=== PATIENT | female | born 1930 | race Caucasian/White ===

== ENCOUNTER → 2017-05-04 | Outpatient (CLI) | payer MEDICARE, OTHER ==
[~2017-05-04] MED LIST: CELE1CAP8 PO; DIAZ5TAB PO; DILT360C12 PO; FLUT50SP EACH NARE; IRBE300T11 PO; LEVO125T4 PO; MECL-62 PO; PRIL20TA2 PO; ROSU10 PO; TRAM50TA PO; TRAV0.00 EACH EYE; VITA100021 SL; VITA400C28 PO; VIVE0.05 T-DERMAL
[2017-05-04 12:02] LABS: AUTOMATED NEUTROPHIL # 4.4 TH/MM3 (1.8-7.7); BASOPHIL % 0.8 % (0.0-2.0); EOSINOPHIL # 0.1 TH/MM3 (0-0.4); HEMATOCRIT 36.9 % (35.0-46.0); HEMO FLAGS DIFF FINAL; LYMPH % 17.8 % (9.0-44.0); LYMPHOCYTE # 1.1 TH/MM3 (1.0-4.8); MEAN CELL VOLUME 83.5 FL (80.0-100.0); MEAN CORPUSCULAR HEMOGLOBIN 27.2 PG (27.0-34.0); MEAN CORPUSCULAR HGB CONC 32.6 % (32.0-36.0); MONO % 9.1 % (0.0-8.0); NEUT % 71.3 % (16.0-70.0); PLATELET COUNT 251 TH/MM3 (150-450); RED BLOOD COUNT 4.43 MIL/MM3 (4.00-5.30); RED CELL DISTRIBUTION WIDTH 15.4 % (11.6-17.2); WHITE BLOOD COUNT 6.1 TH/MM3 (4.0-11.0)
[2017-05-04 12:13] LABS: BLOOD, URINE NEG (NEG); COMMENT (UR) CULT NOT INDICATED; CULTURE IF INDICATED CULT NOT INDICATED; GLUCOSE,URINE NEG (NEG); KETONE, URINE NEG (NEG); NITRITE,URINE NEG (NEG); PH, URINE 6.5 (5.0-8.5); SQUAMOUS EPITHELIAL CELL URINE 1 /hpf (0-5); URINE COLOR LIGHT-YELLOW (YELLW/STRAW)
[2017-05-04 12:15] LABS: BICARBONATE 28.1 MEQ/L (21.0-32.0)
--- NOTE | 2017-05-06 13:01 | EKG ---
Date Performed: 05/04/2017 Time Performed: 11:46:00 PTAGE: 86 years EKG: Possible inferior wall myocardial infarction, of indetermined age First degree AV block Low voltage in precordial leads Since PREVIOUS TRACING , no significant change noted Analysis error PREVIOUS TRACIN 7 15.43 DOCTOR: Shad Donnelly Interpretating Date/Time 05/06/2017 12:59:56
== END ==
LOC: CPRE 11:20
PROVIDERS: ATTEND Orthopaedic Surgery Orthopaedic Surgery of the Spine
DX: Z01.810 Encounter for preprocedural cardiovascular examination (principal); Z01.812 Encounter for preprocedural laboratory examination; M50.30 Other cervical disc degeneration, unspecified cervical region; M47.12 Other spondylosis with myelopathy, cervical region
CPT/HCPCS: 36415; 80048; 81001; 85025; 93005

== ENCOUNTER 2017-05-11 05:26 | Observation (INO) | payer MEDICARE, OTHER ==
[~2017-05-11] VITALS: Ht 160 cm; Wt 83.3 kg
[2017-05-11] MEDS ORDERED: CHLORHEXIDINE GLUCONATE 4% SOLN 120 ML BTL TOPICAL SCH (05:45)
[2017-05-11] MEDS ORDERED: POVIDONE IODINE 5% (ANTISEPSIS KIT) 4 APPLICATIONS EACH NARE PRN (05:45)
[2017-05-11] MEDS ORDERED: LACTATED RINGER'S 1000 ML IV PRN (05:45)
[2017-05-11] MEDS ORDERED: METOPROLOL TARTRATE 25 MG TAB PO PRN (05:45)
[2017-05-11] MEDS ORDERED: SODIUM CHLORID 0.9% 500 ML IV PRN (05:45)
[2017-05-11] MEDS ORDERED: VANCOMYCIN 1000 MG/NS 250 ML (for <70 kg) IV SCH ×2 (05:45)
[2017-05-11] MEDS ORDERED: CHLORHEXIDINE GLUCONATE 2 % 1 PACK (2 CLOTHS) TOPICAL PRN (05:45)
[2017-05-11] MEDS ORDERED: ceFAZolin 2 GM PREMIX 50 ML IV SCH (05:45)
[2017-05-11] MEDS ORDERED: GENTAMICIN SULFATE 80 MG/2 ML VIAL ONE ×2 (06:24)
[2017-05-11] MEDS ORDERED: BUPIVACAINE/EPINEPHRINE 0.25% PF 30 ML VIAL ONE (06:25)
[2017-05-11] MEDS ORDERED: ACETAMINOPHEN 1000 MG/100 ML 100 ML IV ONE (06:45)
[2017-05-11] MEDS ORDERED: PROPOFOL 500 MG/50 ML INJ 50 ML ONE (06:56)
--- NOTE | 2017-05-11 09:08 | PD.OP ---
cc: Roberto Barreto MD; Zack Barreto MD Operative Report Date of Surgery: May 11, 2017 Preoperative Diagnosis: Cervical spinal stenosis, C4-5. Cervical radiculopathy, bilateral. Cervical myelopathy Postoperative Diagnosis: Same Procedure: Anterior cervical discectomy decompression and bilateral foraminotomies, C4 5. Left anterior iliac crest bone graft Anesthesia: Gen. Surgeon: Zack Barreto Hyperion Developer(s): NATALIA Murillo Operation and Findings: EBL: 50 cc INDICATIONS: This patient is an 86-year-old female with significant neck and arm pain. Investigative studies show evidence of cervical stenosis especially at C4 5 with evidence of spinal cord compression and mild spinal cord ischemia. She presents for surgical treatment NOTE: Anusha Murillo PA-C was present for the entire surgical procedure as my first coat operator. In my medical opinion her skill and care was necessary for proper management of this patient PROCEDURE: The patient was brought to the operating room and anesthetized in the supine position. This patient was positioned supine on the radiolucent table. All pressure points were protected in the anterior cervical spine and iliac crest was scrubbed with alcohol followed by Hibiclens followed by ChloraPrep. A timeout was done and antibiotics were given within 1 hour time window. Lateral radiographic images were used identifying the proper level. A right anterior incision was made in line with skin creases. The platysma was opened in line with the incision. Deep dissection continued in the interval between the carotid sheath and the esophagus. The longus-coli muscles were lifted on both sides and retractors were positioned allowing good exposure. Lateral radiographic images were used to identify the proper level. Turon style interosseous pins were placed at C4 and 5 allowing exposure to that level. The microscope was rolled into the field. A total discectomy was accomplished and posterior osteophytes were removed. The posterior longitudinal ligament and annulus was taken down. Bilateral foraminotomies were accomplished. The endplates were squared up anticipating later bone grafting. A blunt probe could be placed out each foramen without evidence of nerve root compromise. The left iliac crest was approached. A small stab incision was made allowing percutaneous access to the anterior iliac crest. Multiple cores of cancellous bone were harvested and taken to the back table to be used for later bone grafting. The wound was irrigated anesthetized and closed with 4-0 Vicryl followed by Dermabond. The case was turned over to Dr. Roberto Barreto for fusion and instrumentation per his dictation. FINDINGS: There was evidence of a central osteophyte disc complex and evidence of a disc herniation centrally into the left extending into the foramen at C4 5. The final decompression was very satisfactory. A blunt probe could be placed along the exiting C5 nerve root on both sides without evidence of compromise. No complication was appreciated. NOTE: This surgery was performed in 2 parts. The first part was the neurosurgical decompression performed under the variable power stereo microscope by the undersigned in addition to the bone graft. The second portion of the surgery will be performed by the orthopedic spine component by co -surgeon, Dr. Roberto Barreto for the anterior fusion with interbody cage and anterior plate. The skill of 2 surgeons was necessary to perform distinct separate procedural services as dictated above and dictated in the following operative note by Dr. Roberto Barreto. Zack Barreto MD May 11, 2017 09:08
[2017-05-11] MEDS ORDERED: Post-op Orders (for Pharmacy) XX ONE (10:12)
--- NOTE | 2017-05-11 10:13 | RADRPT ---
EXAM DATE/TIME: 05/11/2017 09:40 [facility] COMPARISON: No previous studies available for comparison. INDICATIONS : C4-C5 Anterior cervical discectomy and fusion. MEDICAL HISTORY : None. SURGICAL HISTORY : None. ENCOUNTER: Initial ACUITY: 1 day PAIN SCORE: Non-responsive. LOCATION: c-spine FINDINGS: Two projection examination was performed. Post surgical changes following anterior cervical fusion a t C4-5 are noted. Vertebral body cages in place. Cervical alignment is well-preserved. CONCLUSION: Stable cervical alignment and satisfactory appearance of the cervical spine following anterior cervic al fusion C4-5. Derek Orozco MD on May 11, 2017 at 10:04 Board Certified Radiologist. This report was verified electronically.
[2017-05-11] MEDS ORDERED: ONDANSETRON HCL 4 MG/2 ML VIAL IV PUSH PRN (10:30)
[2017-05-11] MEDS ORDERED: traMADol HCL 50 MG TAB PO PRN (10:30)
[2017-05-11] MEDS ORDERED: MORPHINE SULFATE 4 MG/ML INJ IV PUSH PRN (10:30)
[2017-05-11] MEDS ORDERED: ALUMINUM/MAGNESIUM/SIMETH 30 ML CUP PO PRN (10:30)
[2017-05-11] MEDS ORDERED: PROMETHAZINE INJ 25 MG/ML VIAL IM PRN (10:30)
[2017-05-11] MEDS ORDERED: DO NOT ADM ANY ANTICOAGULANT DRUGS PRN (10:30)
[2017-05-11] MEDS ORDERED: NON-FORMULARY DRUG (Estradiol-Dot Patch 84 HR (Vivelle-Dot Patch 84 HR) 1 PATCH) T-DERMAL SCH (10:30)
[2017-05-11] MEDS ORDERED: MECLIZINE HCL 25 MG TAB PO PRN (10:30)
[2017-05-11] MEDS: LACTATED RINGER'S 1000 ML INJ 1,000 ML IV SCH ×2 (10:45→22:47)
[2017-05-11] MEDS ORDERED: *morphine SULFATE 8 MG/ML PERIprocedure ONLY ONE (10:48)
[2017-05-11] MEDS ORDERED: DIAZEPAM 5 MG TAB PO PRN (11:00)
--- NOTE | 2017-05-11 11:55 | MP ---
cc: WILLIE CRAIN,WILLIE FONTANEZ DATE OF SURGERY 05/11/2017 PREOPERATIVE DIAGNOSIS 1. C4-5 herniated nucleus pulposus, osteophyte disk complex. 2. C4-5 spinal stenosis, spinal cord compression, spinal cord edema. 3. Cervical spine degenerative disc disease, osteoarthritis. 4. Cervical radiculitis 5. Cervical myelopathy with cervical radiculitis and bilateral upper extremity weakness. 6. Cervical spine degenerative disease, osteoarthritis. PROCEDURE C4-5 screws anterior interbody fusion; C4-5 SpineNet ACC anterior cervical cage; C4-5 SpineNet Rauscher anterior spinal instrumentation. SURGEON Kadie Barreto MD [employer] SUPERINTENDENT Nina Sumner PA-C ESTIMATED BLOOD LOSS 25 cc for the entire case DRAINS None CONDITION Stable PLAN OF ACTIVITY As per orders PROCEDURE Dr. Zack Barreto and myself were co-surgeons. Dr. Zack Barreto performed in the neuro decompressive portion of the procedure and I performed the orthopedic spinal stabilization fusion portion of the procedure. My curriculum assistant Nina Sumner PA-C was present for my portion of the surgical case. She was medically necessary for the case because of the complexity of the case and to facilitate the performance of the procedure. The MICROSOFT OFFICE INSTRUCTOR at the back table was not a skill set for this case to manipulate the instruments e.g. multiple different types of soft tissue retractors, trial implants and also permanent implants. The patient brought into the operating room and had satisfactory general endotracheal anesthesia by the Department of Anesthesia. Dr. Zack Barreto performed a right transverse anterior cervical spine exposure to the cervical spine. He performed anterior cervical diskectomy, anterior decompression at C4-5 and also foraminotomies. The endplates at C4-5 were prepared for fusion. The hyaline cartilage endplate was removed using angled curettes and burs. A 6 x 10 x 12 SpineNet ACC cage was placed in the interspace. Anterior iliac crest bone grafting was used under fluoroscopic guidance for the interbody fusion. Anterior osteophytes were removed using multiple different types of rongeurs and burs. A 23 mm plate was used for anterior spinal instrumentation. Two plate tacks were used and appropriate positioning of the plate was confirmed with fluoroscopic guidance in the AP and lateral plane. Two screws were used in the vertebral body of C4 and also C5. Each screw was drilled. Each screw was inserted. They were 14 mm length screws, fixed angle screws, 4 mm diameter. Each screw was drilled and screwed into the bone. Each screw head was appropriately locked to the plate under fluoroscopic guidance. The patient was found to have satisfactory bone graft at C4-5 and satisfactory ACC cage at C4-5, satisfactory placement of the anterior spinal instrumentation at C4-5. The wound was irrigated with copious amounts of sterile saline antibiotic solution. The wound itself was dry. The wound was closed in multiple layers using multiple 3-0 Vicryl suture. The skin was approximated with a running subcuticular 4-0 Vicryl. Dermabond placed over the incision. The patient tolerated the procedure well and arrived in the Recovery Room in stable and satisfactory condition. MD HIGINIO Acevedo/ANTWAN /10:13 AM /11:27 AM
[2017-05-11 13:15] VITALS: BP 105/63; PULSE 70; RESP 15; TEMP 96.6; O2SAT 92
--- NOTE | 2017-05-11 14:47 | PD.CONS ---
[facility] Reason for Consult Medical management. Primary Care Physician Diaz Angelo MD Diagnoses: (1) Herniated cervical disc (2) Spinal stenosis History of Present Illness Ms. Manjarrez is a pleasant 86 year old female with a history of hypertension, hypothyroidism who underwent anterior cervical disctectomy decompression, left anterior iliac crest bone graft on 05/11/2017. On Mar 26, 2017 patient fell. She did not have any lightheadedness, dizziness prior to her fall. She reports frequent mechanical fall including one on the Mar 26. Immediately following her fall, she did not report any symptoms. However, gradually she started having numbness of her finger tips then her hand. She was subsequently evaluated by Orthopedic surgery and work up indicated cervical stenosis especially C4-C5 with spinal cord compression and mild spinal cord ischemia. Surgical management was recommended. At the time of this interview, patient is accompanied by her daughter and grand daughter. Patient is comfortable and wearing her [place] collar. She reports mild numbness of her fingers but improved. No fever, chills, chest pain, SOB. No changes in bowel or bladder habits. Review of Systems Except as stated in HPI: all other systems reviewed are Neg Past Family Social History Allergies: Coded Allergies: No Known Allergies (Verified Allergy, Mild, 05/11/17) Past Medical History Hypertension Hyperlipidemia Hypothyroidism Past Surgical History Hip replacement 2 years ago Right knee surgery Appendectomy Breasts reduction Hysterectomy Active Ordered Medications Current Medications Medications (Trade) Dose Ordered Sig/[place] Route Start Time Stop Time Status Last Admin (Lopressor) 25 mg GLASSWARE SELECTOR PRN PO 05/11/17 05:45 05/14/17 05:44 (Betadine 5% Antisepsis Kit) 1 applic GLASSWARE SELECTOR PRN EACH NARE 05/11/17 05:45 05/14/17 05:44 05/11/17 07:00 (Chlorhexidine 2% Cloth) 3 pack GLASSWARE SELECTOR PRN TOPICAL 05/11/17 05:45 05/14/17 05:44 05/11/17 06:00 (Hibiclens 4% Top Soln) 1 applic ONCE TOPICAL 05/11/17 05:45 05/14/17 05:44 05/11/17 06:00 (Valium) 5 mg TID PRN PO 05/11/17 11:00 (Cardizem Cd) 360 mg DAILY PO 05/12/17 09:00 (Flonase [place] Spr) 1 spray BID EACH NARE 05/11/17 21:00 (Synthroid) 125 mcg DAILY@0600 PO 05/12/17 06:00 (Antivert) 25 mg TID PRN PO 05/11/17 10:30 (Cozaar) 100 mg DAILY PO 05/12/17 09:00 (Protonix) 20 mg DAILY PO 05/12/17 09:00 (Lipitor) 20 mg DAILY PO 05/12/17 09:00 (Xalatan 0.005% Opth Soln) 1 drop HS EACH EYE 05/11/17 21:00 Lactated Ringer's 1,000 ml @ 80 mls/hr [id number] IV 05/11/17 10:17 05/11/17 10:45 Cefazolin Sodium 1000 mg/Sodium Chloride 100 ml @ 200 mls/hr Q8H IV 05/11/17 16:00 05/12/17 08:29 05/11/17 16:16 (Morphine Inj) 3 mg Q3H PRN IV PUSH 05/11/17 10:30 (Phenergan Inj) 25 mg Q4H PRN IM 05/11/17 10:30 (Theragran M Tab) 1 tab BID PO 05/12/17 09:00 07/11/17 08:59 (Zofran Inj) 4 mg Q6H PRN IV PUSH 05/11/17 10:30 (Mag-Al Plus Susp Liq) 30 ml Q6H PRN PO 05/11/17 10:30 (Ambien) 5 mg HS PRN PO 05/11/17 21:00 (Ultram) 50 mg Q6H PRN PO 05/11/17 10:30 05/11/17 18:04 (Ultram) 100 mg Q6H PRN PO 05/11/17 10:30 Miscellaneous Information ALL NURSING DEPARTME... UNSCH PRN .XX 05/11/17 10:30 05/12/17 10:29 (Flu (Quadrivalent) Vaccine Inj) 0.5 ml ONCE ONCE IM 05/12/17 10:00 05/12/17 10:01 Patient Own Medication PT OWN MED: ESTRADIOL(VIVELLE DOT) 0.05 MG/... 2XWEEK TOPICAL 05/14/17 09:00 Future Hold Family History Mother from Alzheimer's at the age of 82. Social History Denies using tobacco, alcohol or illicit drugs. Physical Exam Vital Signs Vital Signs Date Time Temp Pulse Resp B/P (MAP) Pulse Ox O2 Delivery O2 Flow Rate FiO2 05/11/17 13:15 96.6 70 15 105/63 (77) 92 05/11/17 10:15 68 15 117/56 (76) 96 Nasal Cannula 2 05/11/17 10:12 97.8 76 14 109/61 (77) 100 Nasal Cannula 3 05/11/17 07:04 98.9 63 20 116/44 (68) 98 Physical Exam GENERAL: This is a well-nourished, well-developed patient, in no apparent distress. SKIN: No rashes, ecchymoses or lesions. Warm and dry. HEAD: Atraumatic. Normocephalic. No temporal or scalp tenderness. EYES: Pupils equal round and reactive. No injection or drainage. ENT: Nose without bleeding, purulent drainage or septal hematoma. Airway patent. NECK: [place] collar in place. CARDIOVASCULAR: Regular rate and rhythm without murmurs, gallops, or rubs. No JVD. RESPIRATORY: Clear to auscultation. Breath sounds equal bilaterally. No wheezes , rales, or rhonchi. GASTROINTESTINAL: Abdomen soft, non-tender, nondistended. No guarding. MUSCULOSKELETAL: Extremities without clubbing, cyanosis, or edema. NEUROLOGICAL: Awake and alert. Cranial nerves II through XII intact. No focal neurological deficits. Normal speech. Imaging Last Impressions Cervical Spine X-Ray 05/11/17 0000 Signed Impressions: Service Date/Time: April 09:40 - CONCLUSION: Stable cervical alignment and satisfactory appearance of the cervical spine following anterior cervical fusion C4-5. Derek Orozco MD Assessment and Plan Problem List: (1) Herniated cervical disc ICD Code: M50.20 - Other cervical disc displacement, unspecified cervical region (2) Spinal stenosis ICD Code: M48.00 - Spinal stenosis, site unspecified Assessment and Plan Ms. Manjarrez is a pleasant 86 year old female with a recent history of fall followed by bilateral hand numbness. Work up eventually indicated cervical stenosis, spinal compression. Patient underwent anterior cervical discectomy on 05/11/2017. - C4-C5 cervical spinal stenosis - Bilateral cervical radiculopathy - Cervical myelopathy - s/p anterior cervical discectomy, left anterior iliac crest bone graft. - Tramadol PRN for pain. - Hypertension - Continue Losartan 100mg Qday. She is also on Diltiazem. She does not have any history of Afib or other dysrhythmia. - Hypothyroidism - Continue Levothyroxine 125mcg Qday. - Hyperlipidemia - continue Atorvastatin 20mg Qday. - Anxiety - Continue Diazepam 5mg TID PRN. Thank you for the consult. We will continue to follow this patient with you. Tony Alamo DO May 11, 2017 14:47
--- NOTE | 2017-05-11 14:48 | HHI.FF ---
Face to Face Verification Diagnosis: (1) Herniated cervical disc (2) Spinal stenosis Physical Therapy Order: Evaluate and Treat, Improve ambulation, Strength and gait training Home Health Nursing Order: Medical education Signs/symptoms of disease process Nursing assessment with vital signs I have seen patient Chela Manjarrez on 05/11/17. My clinical findings support the need for the requested home health care services because: Ltd mobility - disease progression Patient has SOB Deconditioned w/ increased weakness Limited ability to care for self Need for psychosocial assistance High risk of falls Infection w/ risk of complications I certify that my clinical findings support that this patient is homebound because: Post-op weakness Unsteady gait/balance Unsafe to leave home unassisted Need for psychosocial assistance [id number] bed/chair Unable to use public transportation Tony Alamo DO May 11, 2017 2:48 pm
[2017-05-11 16:00] VITALS: BP 130/68; PULSE 77; RESP 18; TEMP 96.3; O2SAT 98
[2017-05-11 16:40] VITALS: O2SAT 92
[2017-05-11] MEDS: traMADol HCL 50 MG TAB PO PRN ×2 (18:04→23:10)
[2017-05-11 20:00] VITALS: BP_SYST 60; PULSE 79; RESP 18; TEMP 95.7; O2SAT 97
[2017-05-11] MEDS: FLUTICASONE PROPIONATE 50 MCG/ACT 16 GM NASAL SPRAY EACH NARE SCH (20:47)
[2017-05-11] MEDS ORDERED: LATANOPROST 0.005% OPHT SOLN 2.5 ML BTL EACH EYE SCH (21:00)
[2017-05-11] MEDS ORDERED: ZOLPIDEM TARTRATE 5 MG TAB PO PRN (21:00)
[2017-05-12] VITALS: BP 125/58; PULSE 77; RESP 18; TEMP 95.3; O2SAT 96
[2017-05-12 04:00] VITALS: BP 157/70; PULSE 74; RESP 18; TEMP 97.3; O2SAT 97
[2017-05-12] MEDS: traMADol HCL 50 MG TAB PO PRN ×2 (05:58→13:17)
[2017-05-12] MEDS ORDERED: LEVOTHYROXINE SODIUM 125 MCG TAB PO SCH (06:00)
[2017-05-12 08:00] VITALS: BP 137/66; PULSE 79; RESP 18; TEMP 98.2; O2SAT 95
[2017-05-12] MEDS: FLUTICASONE PROPIONATE 50 MCG/ACT 16 GM NASAL SPRAY EACH NARE SCH (09:00)
[2017-05-12] MEDS ORDERED: MULTIVITAMINS/MINERALS THERAPEUTIC TAB PO SCH (09:00)
[2017-05-12] MEDS ORDERED: DILTIAZEM-CD 180 MG CAP ER PO SCH (09:00)
[2017-05-12] MEDS ORDERED: ATORVASTATIN 20 MG TAB PO SCH (09:00)
[2017-05-12] MEDS ORDERED: PANTOPRAZOLE SOD 20 MG DELAYED RELEASE TAB PO SCH (09:00)
[2017-05-12] MEDS ORDERED: LOSARTAN 50 MG TAB PO SCH (09:00)
[2017-05-12] MEDS ORDERED: INFLUENZA VIRUS VACCINE (QUADRIVALENT) 0.5 ML SYR IM ONE (10:00)
[2017-05-12] MEDS ORDERED: TRAM50TA PO (10:34)
[2017-05-12] MEDS: LACTATED RINGER'S 1000 ML INJ 1,000 ML IV SCH (11:17)
[2017-05-14] MEDS ORDERED: ESTRADIOL TOPICAL SCH (09:00)
== END 2017-05-12 13:36 | disposition home health service (06) ==
LOC: HSDC 05:26 → HSDI 10:20 → N06A 12:53 → EDSTATUS 13:30
PROVIDERS: ADMIT Orthopaedic Surgery Orthopaedic Surgery of the Spine; ATTEND Orthopaedic Surgery Orthopaedic Surgery of the Spine
DX: M48.02 Spinal stenosis, cervical region (principal); M50.121 Cervical disc disorder at C4-C5 level with radiculopathy; M50.021 Cervical disc disorder at C4-C5 level with myelopathy; M47.12 Other spondylosis with myelopathy, cervical region; G95.19 Other vascular myelopathies; G95.20 Unspecified cord compression; I10 Essential (primary) hypertension; E78.5 Hyperlipidemia, unspecified; R06.89 Other abnormalities of breathing; E66.9 Obesity, unspecified; Z23 Encounter for immunization
CPT/HCPCS: 00600; 20938; 22551; 22853; 72040; 76000; 94150; 96365; 96372; 97162; C1713; G0008; G0378; G8987; G8988; J0131; J0690; J1580; J2270; J3370; J7050; J7120; L0150; Q2038; 90471; 90686